=== PATIENT | male | born 1950 | race Caucasian/White ===

== ENCOUNTER 2023-09-30 05:51 | Inpatient (IN) ==
[2023-09-25 16:10] LABS: Basophils # (Auto) 0.02 K/mcL (0.00-0.30); Basophils % (Auto) 0.3 % (0.0-2.0); Eosinophils # (Auto) 0.12 K/mcL (0.00-0.70); Eosinophils % (Auto) 1.8 % (0.0-7.0); Hematocrit 46.4 % (40.1-51.0); Hemoglobin 15.3 g/dL (13.7-17.5); Lymphocytes # (Auto) 1.89 K/mcL (1.50-4.80); Lymphocytes % (Auto) 28.1 % (15.5-49.0); Mean Cell Volume 97.9 fL (80.0-100.0); Mean Platelet Volume 9.1 fL (8.8-12.5); Monocytes # (Auto) 0.53 K/mcL (0.10-0.90); Monocytes % (Auto) 7.9 % (1.0-12.0); Neutrophils % (Auto) 61.6 % (38.0-78.0); Platelet Count 249 K/mcL (140-440); RBC 4.74 M/mcL (4.63-6.08); Red Cell Distribution Width 12.5 % (11.5-14.5); WBC 6.7 K/mcL (4.5-11.0)
[2023-09-25 16:25] LABS: INR 0.9 (0.9-1.1); Prothrombin Time 12.6 sec (11.9-14.5)
[2023-09-25 16:32] LABS: ALT/SGPT 15 U/L (<40); AST/SGOT 27 U/L (<40); Albumin 4.5 gm/dL (3.2-5.2); Albumin/Globulin Ratio 1.5 (1.0-2.3); Alkaline Phosphatase 97 U/L (39-117); Bilirubin,Total 0.5 mg/dL (0.1-1.0); Blood Urea Nitrogen 13 mg/dL (8-23); Calcium 9.3 mg/dL (8.6-10.4); Carbon Dioxide 20 mmol/L (22-30); Chloride 107 mmol/L (96-108); Glomerular Filtration Rate 94; Glucose 99 mg/dL (70-105); Potassium 4.2 mmol/L (3.3-5.1); Sodium 139 mmol/L (133-145)
[2023-09-30] MEDS ORDERED: DEXAMETHASONE 10 MG/ML VIAL ONE (10:40)
[2023-09-30] MEDS ORDERED: ONDANSETRON 4 MG/2 ML VIAL ONE (10:40)
[2023-09-30] MEDS ORDERED: LIDOCAINE 2% PF 5 ML VIAL ONE (10:40)
[2023-09-30] MEDS: CIPROFLOXACIN 400 MG/200 ML BAG IV SCH ×2 (10:52→21:28)
[2023-09-30] MEDS ORDERED: ROCURONIUM 10 MG/ML ML IV ONE (11:24)
[2023-09-30] MEDS ORDERED: fentaNYL 100 MCG/2 ML VIAL ONE (11:25)
[2023-09-30] MEDS ORDERED: PROPOFOL 200 MG/20 ML VIAL IV ONE (11:26)
[2023-09-30] MEDS ORDERED: ePHEDrine 50 MG/5 ML SYRINGE (ANEST) IV ONE (12:36)
[2023-09-30] MEDS ORDERED: MAGNESIUM SULFATE 2 GM/50 ML BAG IV ONE (12:36)
[2023-09-30] MEDS ORDERED: GLYCOPYRROLATE 0.2 MG/ML VIAL IV ONE (13:20)
[2023-09-30] MEDS ORDERED: HYDROmorphone 1 MG/ML SYRINGE ONE (13:21)
[2023-09-30] MEDS ORDERED: SUGAMMADEX SODIUM 200 MG/2 ML VIAL IV ONE (13:56)
[2023-09-30] MEDS ORDERED: BENZOCAINE/MENTHOL 1 LOZENGE PO PRN (14:22)
[2023-09-30] MEDS ORDERED: ONDANSETRON 4 MG/2 ML VIAL IV PRN ×2 (14:22→14:40)
[2023-09-30] MEDS ORDERED: IPRATROPIUM/ALBUTEROL 3 ML AMPUL.NEB NEB PRN (14:22)
[2023-09-30] MEDS: ACETAMINOPHEN 1,000 MG/100 ML BAG IV ONE (14:50)
[2023-09-30] MEDS: fentaNYL 100 MCG/2 ML VIAL IV PRN (14:51)
[2023-09-30] MEDS: MEPERIDINE 25 MG/ML VIAL IV PRN (14:54)
[2023-09-30] MEDS: HYDROmorphone 1 MG/ML SYRINGE IV PRN (15:10)
[2023-09-30] MEDS: 0.9 % SODIUM CHLORIDE 1,000 ML IV SCH (15:58)
[2023-09-30] MEDS: metroNIDAZOLE 500 MG/100 ML BAG IV SCH (16:33)
[2023-09-30] MEDS: METOCLOPRAMIDE 10 MG/2 ML VIAL IV SCH (17:43)
[2023-09-30] MEDS: ACETAMINOPHEN 1,000 MG/100 ML BAG IV SCH (21:27)
[2023-09-30] MEDS: SENNOSIDES 1 TABLET PO SCH (21:27)
[2023-09-30] MEDS: DOCUSATE SODIUM 100 MG CAPSULE PO SCH (21:27)
[2023-09-30] MEDS: 0.9 % SODIUM CHLORIDE 10 ML SYRINGE IV SCH (21:29)
[2023-10-01 05:39] LABS: Basophils # (Auto) 0 K/mcL (0.00-0.30); Basophils % (Auto) 0 % (0.0-2.0); Eosinophils # (Auto) 0 K/mcL (0.00-0.70); Eosinophils % (Auto) 0 % (0.0-7.0); Hematocrit 39.9 % (40.1-51.0); Hemoglobin 13.5 g/dL (13.7-17.5); Lymphocytes # (Auto) 0.97 K/mcL (1.50-4.80); Lymphocytes % (Auto) 6.1 % (15.5-49.0); Mean Cell Volume 96.8 fL (80.0-100.0); Mean Corpuscular HGB Conc 33.8 g/dL (31.0-36.0); Mean Platelet Volume 8.7 fL (8.8-12.5); Monocytes # (Auto) 1.38 K/mcL (0.10-0.90); Monocytes % (Auto) 8.7 % (1.0-12.0); Neutrophils % (Auto) 84.9 % (38.0-78.0); Platelet Count 261 K/mcL (140-440); RBC 4.12 M/mcL (4.63-6.08); Red Cell Distribution Width 12.5 % (11.5-14.5); WBC 15.9 K/mcL (4.5-11.0)
[2023-10-01 06:03] LABS: ALT/SGPT 9 U/L (<40); AST/SGOT 20 U/L (<40); Albumin/Globulin Ratio 1.7 (1.0-2.3); Alkaline Phosphatase 83 U/L (39-117); Bilirubin,Direct 0.3 mg/dL (<0.3); Bilirubin,Total 0.9 mg/dL (0.1-1.0); Blood Urea Nitrogen 13 mg/dL (8-23); Calcium 8.3 mg/dL (8.6-10.4); Carbon Dioxide 21 mmol/L (22-30); Chloride 105 mmol/L (96-108); Globulin 2.3 gm/dL (2.2-3.7); Glomerular Filtration Rate 94; Glucose 117 mg/dL (70-105); Lactate Dehydrogenase 171 U/L (135-225); Phosphorous 3.1 mg/dL (2.5-4.5); Potassium 4.4 mmol/L (3.3-5.1); Sodium 138 mmol/L (133-145); Triglycerides 36 mg/dL (<150); Uric Acid 6.1 mg/dL (2.5-8.0)
[2023-10-02 07:04] LABS: Basophils # (Auto) 0.02 K/mcL (0.00-0.30); Basophils % (Auto) 0.2 % (0.0-2.0); Eosinophils # (Auto) 0.06 K/mcL (0.00-0.70); Eosinophils % (Auto) 0.5 % (0.0-7.0); Hematocrit 39.1 % (40.1-51.0); Hemoglobin 13.4 g/dL (13.7-17.5); Lymphocytes # (Auto) 1.21 K/mcL (1.50-4.80); Lymphocytes % (Auto) 10.7 % (15.5-49.0); Mean Cell Volume 96.3 fL (80.0-100.0); Mean Corpuscular HGB Conc 34.3 g/dL (31.0-36.0); Monocytes # (Auto) 0.82 K/mcL (0.10-0.90); Monocytes % (Auto) 7.2 % (1.0-12.0); Neutrophils % (Auto) 81.2 % (38.0-78.0); Platelet Count 254 K/mcL (140-440); RBC 4.06 M/mcL (4.63-6.08); Red Cell Distribution Width 12.8 % (11.5-14.5); WBC 11.4 K/mcL (4.5-11.0)
[2023-10-02 07:11] LABS: ALT/SGPT 7 U/L (<40); AST/SGOT 27 U/L (<40); Albumin 3.8 gm/dL (3.2-5.2); Albumin/Globulin Ratio 1.5 (1.0-2.3); Alkaline Phosphatase 80 U/L (39-117); Bilirubin,Direct 0.4 mg/dL (<0.3); Blood Urea Nitrogen 11 mg/dL (8-23); Calcium 8.2 mg/dL (8.6-10.4); Carbon Dioxide 19 mmol/L (22-30); Chloride 105 mmol/L (96-108); Globulin 2.6 gm/dL (2.2-3.7); Glomerular Filtration Rate 94; Glucose 103 mg/dL (70-105); Lactate Dehydrogenase 204 U/L (135-225); Phosphorous 2.3 mg/dL (2.5-4.5); Potassium 3.8 mmol/L (3.3-5.1); Sodium 138 mmol/L (133-145); Triglycerides 65 mg/dL (<150); Uric Acid 5.9 mg/dL (2.5-8.0)
[2023-10-02] MEDS: ALPRAZolam 0.5 MG TABLET PO PRN (22:30)
[2023-10-03 06:35] LABS: ALT/SGPT 6 U/L (<40); AST/SGOT 20 U/L (<40); Albumin 3.4 gm/dL (3.2-5.2); Albumin/Globulin Ratio 1.5 (1.0-2.3); Alkaline Phosphatase 66 U/L (39-117); Bilirubin,Direct 0.2 mg/dL (<0.3); Bilirubin,Total 0.6 mg/dL (0.1-1.0); Blood Urea Nitrogen 7 mg/dL (8-23); Calcium 8.3 mg/dL (8.6-10.4); Carbon Dioxide 21 mmol/L (22-30); Chloride 105 mmol/L (96-108); Globulin 2.3 gm/dL (2.2-3.7); Glomerular Filtration Rate 100; Glucose 92 mg/dL (70-105); Lactate Dehydrogenase 168 U/L (135-225); Phosphorous 2.1 mg/dL (2.5-4.5); Potassium 3.4 mmol/L (3.3-5.1); Sodium 138 mmol/L (133-145); Triglycerides 65 mg/dL (<150); Uric Acid 6.4 mg/dL (2.5-8.0)
[2023-10-03 07:14] LABS: Basophils # (Auto) 0.01 K/mcL (0.00-0.30); Basophils % (Auto) 0.1 % (0.0-2.0); Eosinophils # (Auto) 0.18 K/mcL (0.00-0.70); Eosinophils % (Auto) 2.1 % (0.0-7.0); Hematocrit 35.2 % (40.1-51.0); Hemoglobin 11.8 g/dL (13.7-17.5); Lymphocytes # (Auto) 1.59 K/mcL (1.50-4.80); Lymphocytes % (Auto) 18.6 % (15.5-49.0); Mean Cell Volume 98.1 fL (80.0-100.0); Mean Corpuscular HGB Conc 33.5 g/dL (31.0-36.0); Mean Platelet Volume 8.9 fL (8.8-12.5); Monocytes # (Auto) 0.81 K/mcL (0.10-0.90); Monocytes % (Auto) 9.5 % (1.0-12.0); Neutrophils % (Auto) 69.5 % (38.0-78.0); Platelet Count 227 K/mcL (140-440); RBC 3.59 M/mcL (4.63-6.08); Red Cell Distribution Width 12.6 % (11.5-14.5); WBC 8.5 K/mcL (4.5-11.0)
[2023-10-03] MEDS: SUCRALFATE 1 GM/10 ML ORAL.SUSP PO SCH (11:22)
[2023-10-03] MEDS: POTASSIUM PHOSPHATE 40 MEQ in DEXTROSE 5% IN WATER 500 ML IV SCH (16:15)
[2023-10-03] MEDS: PANTOPRAZOLE 40 MG VIAL IV SCH (17:13)
[2023-10-04 06:34] LABS: Basophils # (Auto) 0.03 K/mcL (0.00-0.30); Basophils % (Auto) 0.4 % (0.0-2.0); Eosinophils # (Auto) 0.37 K/mcL (0.00-0.70); Eosinophils % (Auto) 5.3 % (0.0-7.0); Hematocrit 32.4 % (40.1-51.0); Hemoglobin 10.9 g/dL (13.7-17.5); Lymphocytes # (Auto) 1.56 K/mcL (1.50-4.80); Lymphocytes % (Auto) 22.5 % (15.5-49.0); Mean Cell Volume 96.7 fL (80.0-100.0); Mean Corpuscular HGB Conc 33.6 g/dL (31.0-36.0); Mean Platelet Volume 9.4 fL (8.8-12.5); Monocytes # (Auto) 0.72 K/mcL (0.10-0.90); Monocytes % (Auto) 10.4 % (1.0-12.0); Neutrophils % (Auto) 61.1 % (38.0-78.0); Platelet Count 243 K/mcL (140-440); RBC 3.35 M/mcL (4.63-6.08); Red Cell Distribution Width 12.6 % (11.5-14.5); WBC 6.9 K/mcL (4.5-11.0)
[2023-10-04 06:59] LABS: ALT/SGPT 6 U/L (<40); AST/SGOT 21 U/L (<40); Albumin 3.3 gm/dL (3.2-5.2); Albumin/Globulin Ratio 1.5 (1.0-2.3); Alkaline Phosphatase 62 U/L (39-117); Bilirubin,Direct < 0.2 mg/dL (0-0.3); Bilirubin,Total 0.4 mg/dL (0.1-1.0); Blood Urea Nitrogen 5 mg/dL (8-23); Calcium 8.3 mg/dL (8.6-10.4); Carbon Dioxide 22 mmol/L (22-30); Chloride 107 mmol/L (96-108); Globulin 2.2 gm/dL (2.2-3.7); Glomerular Filtration Rate 100; Glucose 98 mg/dL (70-105); Lactate Dehydrogenase 201 U/L (135-225); Potassium 3.4 mmol/L (3.3-5.1); Sodium 141 mmol/L (133-145); Triglycerides 75 mg/dL (<150); Uric Acid 5.6 mg/dL (2.5-8.0)
[2023-10-04] MEDS ORDERED: oxyCODONE IR 5 MG TABLET PO PRN (09:56)
[2023-10-04] MEDS ORDERED: ONDANSETRON 4 MG ODT TABLET SL PRN (09:57)
[2023-10-04] MEDS: LEVOFLOXACIN 750 MG TABLET PO SCH (10:35)
[2023-10-04] MEDS ORDERED: PANTOPRAZOLE 40 MG PACKET PO SCH (17:00)
== END 2023-10-04 15:30 | disposition home or self-care (01) | DRG 331 ==
LOC: MEDSUR 05:51 → EDSTATUS 09:00
PROVIDERS: ADMIT Family Medicine Adult Medicine; ATTEND Family Medicine Adult Medicine